=== PATIENT | male | born 1960 | race Caucasian/White ===

== ENCOUNTER 2018-07-06 15:29 | Emergency (ER) | payer OTHER ==
[2018-07-06 15:42] VITALS: RESP 18
[2018-07-06 17:34] LABS: Basophils % (A) 0 %; Eosinophils % (A) 0 %; HCT 41.8 % (39.0-53.0); HGB 14.2 gm/dL (13.0-17.5); Lymphocytes # (A) 1.5 k/uL (1.0-4.8); Lymphocytes % (A) 15 %; MCH 28.1 pg (25.0-35.0); MCV 82.5 fL (80.0-100.0); Mean Platelet Volume 6.1; Monocytes # (A) 0.9 k/uL (0-1.0); Monocytes % (A) 9 %; Neutrophils # (A) 7.6 k/uL (1.3-7.7); Neutrophils % (A) 74 %; Platelet Count 180 k/uL (150-450); RBC 5.07 m/uL (4.30-5.90); RDW 14.3 % (11.5-15.5); WBC 10.3 k/uL (3.8-10.6)
--- NOTE | 2018-07-06 17:35 | XR ---
EXAMINATION TYPE: XR chest 2V DATE OF EXAM: 07/06/2018 COMPARISON: NONE HISTORY: Cough and congestion TECHNIQUE: Frontal and lateral views of the chest are obtained. FINDINGS: There is no heart failure nor confluent pneumonic infiltrate. Heart size is normal. Costop hrenic angles are clear. There are chest leads. Bony thorax is intact. There is mild spurring in the thoracic spine. IMPRESSION: No cardiopulmonary disease. Normal heart.
[2018-07-06 17:43] LABS: ALT 65 U/L (21-72); AST 157 U/L (17-59); Albumin 3.8 g/dL (3.5-5.0); Alkaline Phosphatase 50 U/L (38-126); Anion Gap 11 mmol/L; Blood Urea Nitrogen 22 mg/dL (9-20); Calcium 8.9 mg/dL (8.4-10.2); Carbon Dioxide 26 mmol/L (22-30); Chloride 101 mmol/L (98-107); Glucose 96 mg/dL (74-99); Sodium 138 mmol/L (137-145); Total Bilirubin 2.3 mg/dL (0.2-1.3)
[2018-07-06] MEDS ORDERED: KETOROLAC 30 MG/ML 1 ML VIAL IVP STA (17:52)
[2018-07-06] MEDS ORDERED: SODIUM CHLORIDE 0.9% 1,000 ML IV ONE (17:57)
[2018-07-06 17:58] LABS: Potassium 4.4 mmol/L (3.5-5.1)
--- NOTE | 2018-07-06 18:09 | ED ---
General Adult HPI - General Chief complaint: Arrhythmia/Palpitations Stated complaint: fast heart rate & fever Time Seen by Provider: 07/06/18 16:36 Source: patient Mode of arrival: ambulatory Limitations: no limitations - History of Present Illness Initial comments: 58-year-old male presents today with chief complaint of cough, congestion and body aches x 2-3 days. Patient states that she presented to urgent care for these symptoms, upon arrival patient had noted elevation of heart rate and was sent to the emergency department for further evaluation. She denies palpitations or sensation of racing heart. Upon arrival EKG revealed sinus tachycardia. Remainder was negative. Patient has any fever, night sweats, productive cough, sputum, rigors, bladder spasms, chest pain, dyspnea, dyspnea on exertion, nausea, vomiting, abdominal pain, diarrhea. Patient appears well no signs of acute distress. HR elevated. EKG revealed sinus tachycardia. - Related Data Home Medications Medication Instructions Recorded Confirmed Baclofen [Lioresal] 20 mg PO Q4H 07/06/18 07/06/18 Cholecalciferol [Vitamin D3] 1,000 unit PO DAILY 07/06/18 07/06/18 Previous Rx's Medication Instructions Recorded Ipratropium [place] 0.06%Nasal 2 spray EA NOSTRIL BID 4 Days #1 07/06/18 [Atrovent Nasal 0.06%] bottle Pseudoephedrine 12Hr [Sudafed 12Hr] 120 mg PO Q12H 5 Days #10 tablet.er 07/06/18 Sulfamethox-Tmp 800-160Mg [Bactrim 1 tab PO Q12HR 7 Days #14 tab 07/06/18 DS 800-160 mg] Allergies Allergy/AdvReac Type Severity Reaction Status Date / Time No Known Allergies Allergy Verified 07/06/18 16:58 Review of Systems ROS Statement: Those systems with pertinent positive or pertinent negative responses have been documented in the HPI. ROS Other: All systems not noted in ROS Statement are negative. Constitutional: Denies: fever, chills, night sweats ENT: Reports: throat pain (with cough) Respiratory: Reports: cough. Denies: dyspnea, wheezes, hemoptysis, stridor Cardiovascular: Denies: chest pain, palpitations, dyspnea on exertion, orthopnea Endocrine: Denies: fatigue Gastrointestinal: Denies: abdominal pain, nausea, vomiting Genitourinary: Denies: urgency, dysuria Musculoskeletal: Denies: back pain Skin: Denies: rash, lesions Neurological: Denies: headache, weakness, numbness, paresthesias, confusion Past Medical History Additional Past Medical History / Comment(s): T5 parapalegic History of Any Multi-Drug Resistant Organisms: None Reported Additional Past Surgical History / Comment(s): B rotator cuff, R bicep repair, L upper Bicep repair, B carpal tunnel, sigmoid artery reattachment, fracture pelvis repair, plate in C6 & C7 Past Psychological History: No Psychological Hx Reported Smoking Status: Never smoker Past Alcohol Use History: Occasional Past Drug Use History: None Reported General Exam - General Exam Comments Initial Comments: General: The patient is awake and alert, in no distress, and does not appear acutely ill. Eye: Pupils are equal, round and reactive to light, extra-ocular movements are intact. No nystagmus. There is normal conjunctiva bilaterally. No signs of icterus. Ears, nose, mouth and throat: There are moist mucous membranes and no oral lesions. Oropharynx mildly erythematous no tonsillar enlargement or exudates lesion. Uvula midline. Postnasal drip present. Tympanic membranes within normal limits bilaterally Neck: The neck is supple, there is no tenderness or JVD. No nuchal rigidity. Cardiovascular: There is a regular rate and rhythm. No murmur, rub or gallop is appreciated. Respiratory: Lungs are clear to auscultation, respirations are non-labored, breath sounds are equal. No wheezes, stridor, rales, or rhonchi. Gastrointestinal: Soft, non-distended, non-tender abdomen without masses or organomegaly noted. There is no rebound or guarding present. No CVA tenderness. Bowel sounds are unremarkable. Musculoskeletal: Normal ROM of the UE, no tenderness. Strength 5/5 of UE b/l. Sensation intact of UE b/l. Radial pulses equal bilaterally 2+. Neurological: A&O x 3. CN II-XII intact, There are no obvious motor or sensory deficits. Coordination appears grossly intact. Speech is normal. Skin: Skin is warm and dry and no rashes or lesions are noted. Psychiatric: Cooperative, appropriate mood & affect, normal judgment. Limitations: no limitations Course Vital Signs 07/06/18 07/06/18 15:37 20:29 Temperature 98.3 F 98.6 F Pulse Rate 109 H 92 Respiratory 18 18 Rate Blood Pressure 114/65 142/69 O2 Sat by Pulse 97 99 Oximetry EKG Findings - EKG Comments: EKG Findings:: Ventricular rate 104 bpm, [place] interval 146 most seconds, QRS duration 80 ms, QT/QTC 344/452 ms. This is sinus tachycardia no ST elevation or depression. Normal [place] progression. No noted acute findings Medical Decision Making - Medical Decision Making Well-appearing 58-year-old male. Patient presenting for cough congestion and body aches. Influenza testing negative. Chest x-ray within normal limits. Urinalysis did reveal findings concerning for urinary tract infection, catheter associated. Patient be started on Bactrim. Patient had sustained tachycardia and absence of fever. Given patient is paraplegic with decreased ambulation of lower extremities concern for possible PE as ddx of sustained tachycardia. D- dimer elevated. CT obtained negative for PE. She denies shortness of breath, or chest pain. Patient given fluid bolus. Patient will be treated symptomatically outpatient for upper respiratory infection. This includes Sudafed, nasal spray. Patient discharged and take ibuprofen 800. Patient given Bactrim twice a day 7 days for urinary tract infection with instruction to follow-up with primary care in the next 1-2 days. Patient verbalized understanding. Patient per well on discharge. Return parameters discussed with patient. - Lab Data Result diagrams: 07/06/18 17:05 07/06/18 17:05 Lab Results 07/06/18 07/06/18 07/06/18 Range/Units 17:05 17:05 17:05 WBC 10.3 (3.8-10.6) k/uL RBC 5.07 (4.30-5.90) m/uL Hgb 14.2 (13.0-17.5) gm/dL Hct 41.8 (39.0-53.0) % MCV 82.5 (80.0-100.0) fL MCH 28.1 (25.0-35.0) pg MCHC 34.0 (31.0-37.0) g/dL RDW 14.3 (11.5-15.5) % Plt Count 180 (150-450) k/uL Neutrophils % 74 % Lymphocytes % 15 % Monocytes % 9 % Eosinophils % 0 % Basophils % 0 % Neutrophils # 7.6 (1.3-7.7) k/uL Lymphocytes # 1.5 (1.0-4.8) k/uL Monocytes # 0.9 (0-1.0) k/uL Eosinophils # 0.0 (0-0.7) k/uL Basophils # 0.0 (0-0.2) k/uL D-Dimer (<0.60) mg/L FEU Sodium 138 (137-145) mmol/L Potassium 4.4 (3.5-5.1) mmol/L Chloride 101 (98-107) mmol/L Carbon Dioxide 26 (22-30) mmol/L Anion Gap 11 mmol/L BUN 22 H (9-20) mg/dL Creatinine 0.82 (0.66-1.25) mg/dL Est GFR (CKD-EPI)AfAm >90 (>60 ml/min/1.73 sqM) Est GFR (CKD-EPI)NonAf >90 (>60 ml/min/1.73 sqM) Glucose 96 (74-99) mg/dL Calcium 8.9 (8.4-10.2) mg/dL Total Bilirubin 2.3 H (0.2-1.3) mg/dL AST 157 H (17-59) U/L ALT 65 (21-72) U/L Alkaline Phosphatase 50 (38-126) U/L Total Protein 7.0 (6.3-8.2) g/dL Albumin 3.8 (3.5-5.0) g/dL Urine Color Urine Appearance (Clear) Urine pH (5.0-8.0) Ur Specific [place] (1.001-1.035) Urine Protein (Negative) Urine Glucose (UA) (Negative) Urine Ketones (Negative) Urine Blood (Negative) Urine Nitrite (Negative) Urine Bilirubin (Negative) Urine Urobilinogen (<2.0) mg/dL Ur Leukocyte Esterase (Negative) Urine RBC (0-5) /hpf Urine WBC (0-5) /hpf Ur Squamous Epith Cells (0-4) /hpf Urine Bacteria (None) /hpf Urine Mucus (None) /hpf Influenza Type A RNA Not Detected (Not Detectd) Influenza Type B (PCR) Not Detected (Not Detectd) 07/06/18 07/06/18 Range/Units 17:53 20:25 WBC (3.8-10.6) k/uL RBC (4.30-5.90) m/uL Hgb (13.0-17.5) gm/dL Hct (39.0-53.0) % MCV (80.0-100.0) fL MCH (25.0-35.0) pg MCHC (31.0-37.0) g/dL RDW (11.5-15.5) % Plt Count (150-450) k/uL Neutrophils % % Lymphocytes % % Monocytes % % Eosinophils % % Basophils % % Neutrophils # (1.3-7.7) k/uL Lymphocytes # (1.0-4.8) k/uL Monocytes # (0-1.0) k/uL Eosinophils # (0-0.7) k/uL Basophils # (0-0.2) k/uL D-Dimer 0.75 H (<0.60) mg/L FEU Sodium (137-145) mmol/L Potassium (3.5-5.1) mmol/L Chloride (98-107) mmol/L Carbon Dioxide (22-30) mmol/L Anion Gap mmol/L BUN (9-20) mg/dL Creatinine (0.66-1.25) mg/dL Est GFR (CKD-EPI)AfAm (>60 ml/min/1.73 sqM) Est GFR (CKD-EPI)NonAf (>60 ml/min/1.73 sqM) Glucose (74-99) mg/dL Calcium (8.4-10.2) mg/dL Total Bilirubin (0.2-1.3) mg/dL AST (17-59) U/L ALT (21-72) U/L Alkaline Phosphatase (38-126) U/L Total Protein (6.3-8.2) g/dL Albumin (3.5-5.0) g/dL Urine Color Yellow Urine Appearance Cloudy (Clear) Urine pH 6.0 (5.0-8.0) Ur Specific [place] 1.049 H (1.001-1.035) Urine Protein 1+ H (Negative) Urine Glucose (UA) Negative (Negative) Urine Ketones 1+ H (Negative) Urine Blood Small H (Negative) Urine Nitrite Positive (Negative) Urine Bilirubin Negative (Negative) Urine Urobilinogen 2.0 (<2.0) mg/dL Ur Leukocyte Esterase Large H (Negative) Urine RBC 18 H (0-5) /hpf Urine WBC 59 H (0-5) /hpf Ur Squamous Epith Cells 4 (0-4) /hpf Urine Bacteria Occasional H (None) /hpf Urine Mucus Few H (None) /hpf Influenza Type A RNA (Not Detectd) Influenza Type B (PCR) (Not Detectd) Disposition Clinical Impression: Upper respiratory infection, Catheter-associated urinary tract infection Disposition: HOME SELF-CARE Condition: Good Additional Instructions: Please use medication as discussed. Please follow-up with family doctor in the next 2 days with primary care provider. Please return to emergency room if the symptoms increase or worsen or for any other concerns. Prescriptions: Ipratropium [place] 0.06%Nasal [Atrovent Nasal 0.06%] 2 spray EA NOSTRIL BID 4 Days #1 bottle Pseudoephedrine 12Hr [Sudafed 12Hr] 120 mg PO Q12H 5 Days #10 tablet.er Sulfamethox-Tmp 800-160Mg [Bactrim DS 800-160 mg] 1 tab PO Q12HR 7 Days #14 tab Is patient prescribed a controlled substance at d/c from ED?: No Referrals: Karan Ray MD [Primary Care Provider] - 1-2 days Time of Disposition: 21:49
[2018-07-06 20:30] VITALS: BP 142/69; PULSE 92; TEMP 98.6
[2018-07-06 20:58] LABS: Appearance,Urine Cloudy (Clear); Bacteria,Urine Occasional /hpf; Bilirubin,Urine Negative (Negative); Blood,Urine Small (Negative); Color,Urine Yellow; Glucose,Urine (UA) Negative (Negative); Ketones,Urine 1+ (Negative); Leukocyte Esterase,Urine Large (Negative); Mucus,Urine Few /hpf; Nitrite,Urine Positive (Negative); Protein,Urine 1+ (Negative); RBC,Urine 18 /hpf (0-5); Squamous Epithelial Cell,Urine 4 /hpf (0-4)
[2018-07-06 21:00] LABS: Specific Gravity,Urine 1.049 (1.001-1.035)
--- NOTE | 2018-07-06 21:08 | CT ---
EXAMINATION TYPE: CT angio chest DATE OF EXAM: 07/06/2018 7:20 PM COMPARISON: None HISTORY: transfer from [facility] w/ fast heart rate and fever CT DLP: 604 mGycm Automated exposure control for dose reduction was used. CONTRAST: CTA scan of the thorax is performed with IV Contrast, patient injected with 100 mL of Isovue 370, pul monary embolism protocol. There are 3-D post processed images.. FINDINGS: Thoracic aorta appears intact. There is no evidence of aneurysm or dissection. There is no mediastina l adenopathy. There are no hilar masses. Heart size is normal. There is no pericardial effusion. Ther e is mild pleural thickening and calcification at the right posterior lung base. There is no pleural effusion. There are small hiatal hernia. There is normal contrast opacification of the pulmonary arteries. There are no filling defects. I see no bony destructive process. There is 20% anterior wedging of T6 that appears old. IMPRESSION: NO EVIDENCE OF PULMONARY EMBOLISM. MILD PLEURAL SCARRING AT THE RIGHT POSTERIOR LUNG BASE.
[2018-07-06] MEDS ORDERED: SULFAMETH-TMP DS STARTER PACK 2 TAB BTL PO STA (21:46)
== END 2018-07-06 22:32 | disposition home or self-care (01) ==
LOC: EC 15:29
DX: T83.518A Infection and inflammatory reaction due to other urinary catheter, initial encounter (principal); N39.0 Urinary tract infection, site not specified; J06.9 Acute upper respiratory infection, unspecified; R00.0 Tachycardia, unspecified; Z79.899 Other long term (current) drug therapy
CPT/HCPCS: 36415; 85379; 80053; 85025; 81001; 87040; 87086; 87502; 71046; 71275; 99285; 96374; 96361 ×4; J1885; 87077; 87186